=== PATIENT | male | born 1970 | race Caucasian/White ===

== ENCOUNTER → 2022-03-26 | Outpatient (CLI) | payer BC ==
[2022-03-26 15:00] VITALS: BP 168/73; PULSE 94; RESP 16; TEMP 98; BMI 56.0
--- NOTE | 2022-03-26 15:21 | P.BASOAP ---
Subjective Progress Note Date: 03/26/22 Principal diagnosis: Morbid obesity 51-year-old male presents for band evaluation. Had a lap band placed approximately 20 years ago. He thinks the band may be half full. Has intermittent episodes about once a year where he develops GERD symptoms with vomiting. Says these usually last for 2 days or so. No pain. Patient has gained some weight here recently. Overall though patient states he is happy with the lap band and wants to keep using it as a tool. He does not want fluid removed unless needed. Objective - Vital Signs Vital signs: Vital Signs Temp 98 F 03/26/22 14:57 Pulse 94 03/26/22 14:57 Resp 16 03/26/22 14:57 BP 168/73 03/26/22 14:57 Pulse Ox FiO2 Intake & Output 03/25/22 03/26/22 03/26/22 18:59 06:59 18:59 Weight 162.386 kg - Exam Abdomen: Soft, nontender, nondistended Assessment/Plan (1) GERD (gastroesophageal reflux disease) Narrative/Plan: 51-year-old male with GERD symptoms and intermittent vomiting post lap band. Most of this time the patient says he is happy with the band restriction. Patient was concerned that he had not been seen in many years. Will order esophagram/upper GI to evaluate the lap band site. Further decisions regarding possible adjustment to take place following that. We did offer loosening the band at this time but the patient would like to keep the fluid where it sat. We'll call the patient with the upper GI results. Plan: Date: 03/26/22 Initial Weight: 154.221 kg Initial BMI: 53.2 Current Weight: 162.386 kg Current BMI: 56.0 Type of Surgery: Adjustable Gastric Banding Total Volume in Band: Previous Volume: Volume Removed: Volume Added: Band Size:
== END ==
LOC: BARWHC3 14:22
PROVIDERS: ATTEND Surgery
DX: E66.01 Morbid (severe) obesity due to excess calories (principal); Z68.43 Body mass index [BMI] 50.0-59.9, adult; Z98.84 Bariatric surgery status; K21.9 Gastro-esophageal reflux disease without esophagitis
CPT/HCPCS: 99202